=== PATIENT | male | born 1985 | race African-American/Black ===

== ENCOUNTER 2017-03-27 05:55 | Emergency (ER) | payer OTHER ==
[~2017-03-27] VITALS: Ht 177.8 cm; Wt 95.5 kg
[2017-03-27] MEDS ORDERED: INSU200I4 SQ (05:59)
[2017-03-27] MEDS ORDERED: METF500T4 PO (05:59)
[2017-03-27 06:09] LABS: GLUCOSE,POINT OF CARE 462 MG/DL (70-110)
[2017-03-27] MEDS ORDERED: SODIUM CHLORIDE 0.9% 1,000 ML IV ONE ×3 (06:45→09:30)
[2017-03-27] MEDS ORDERED: ONDANSETRON HCL 4 MG/2 ML VIAL IVP ONE (06:45)
[2017-03-27 06:59] LABS: BASOPHILS % (AUTO) 0.2 % (0.0-2.0); EOSINOPHILS % (AUTO) 2.8 % (1.0-6.0); HEMATOCRIT 48.2 % (41-53); HEMOGLOBIN 16.1 g/dL (13.5-17.5); LYMPHOCYTES % (AUTO) 24.3 % (22.0-44.0); MEAN CORPUSCULAR HEMOGLOBIN 26.7 pg (26.0-34.0); MEAN CORPUSCULAR HGB CONC 33.3 G/dL (31.0-37.0); MEAN CORPUSCULAR VOLUME 80 fL (80-100); MONOCYTES # (AUTO) 0.4 K/uL (0.1-1.0); MONOCYTES % (AUTO) 5.3 % (2.0-9.0); NEUTROPHILS # (AUTO) 5.6 K/uL (1.8-7.7); NEUTROPHILS % (AUTO) 67.4 % (40.0-70.0); PLATELET COUNT (AUTO) 385 K/uL (150-450); RED BLOOD CELL COUNT(AUTO) 6.01 MIL/uL (4.50-5.90); RED CELL DISTRIBUTION WIDTH 14.4 % (11.5-14.5); WHITE BLOOD COUNT (AUTO) 8.3 K/uL (4.5-11.0)
[2017-03-27 07:08] LABS: ALANINE AMINOTRANSFERASE 78 U/L (12-78); ALBUMIN 4.5 g/dL (3.4-5.0); ANION GAP 18 mmol/L (8-16); ASPARTATE AMINOTRANSFERASE 37 U/L (15-37); BILIRUBIN,TOTAL 0.8 mg/dL (0.1-1.0); CALCIUM, TOTAL 9.4 mg/dL (8.8-10.5); CARBON DIOXIDE 23 mmol/L (22-29); CHLORIDE 92 mmol/L (98-107); GLOMERULAR FILTR. RATE CALC > 60 mL/min (>60); SODIUM SERUM 133 mmol/L (136-145); TOTAL PROTEIN, SERUM 9.2 g/dL (6.4-8.2); UREA NITROGEN, BLOOD 14 mg/dL (7-18)
[2017-03-27 07:27] LABS: GLUCOSE COMMENT 1 Doctor Notified; GLUCOSE COMMENT 2 Repeated; GLUCOSE,POINT OF CARE 426 MG/DL (70-110)
[2017-03-27] MEDS ORDERED: INSULIN REGULAR, HUMAN 100 UNITS/ML IVP ONE (07:30)
[2017-03-27 08:42] LABS: GLUCOSE,POINT OF CARE 258 MG/DL (70-110)
[2017-03-27 09:56] LABS: ANION GAP 14 mmol/L (8-16); CALCIUM, TOTAL 8.4 mg/dL (8.8-10.5); CARBON DIOXIDE 24 mmol/L (22-29); CHLORIDE 100 mmol/L (98-107); CREATININE 1.05 mg/dL (0.60-1.30); GLOMERULAR FILTR. RATE CALC > 60 mL/min (>60); SODIUM SERUM 138 mmol/L (136-145); UREA NITROGEN, BLOOD 12 mg/dL (7-18)
[2017-03-27 10:02] LABS: GLUCOSE,POINT OF CARE 223 MG/DL (70-110)
[2017-03-27 11:42] VITALS: BP 119/59
[2017-03-27 11:52] LABS: GLUCOSE,POINT OF CARE 262 MG/DL (70-110)
== END 2017-03-27 11:50 | disposition home or self-care (01) ==
LOC: EMS 05:56
DX: E11.65 Type 2 diabetes mellitus with hyperglycemia (principal)
CPT/HCPCS: 36415; 80048; 80053; 82948; 82962; 85025; 96361; 96374; 99285; J1815; J7030

== ENCOUNTER 2018-07-04 09:02 | Inpatient (IN) | payer MEDICAID, OTHER ==
[~2018-07-04] VITALS: Ht 177.8 cm; Wt 80.8 kg
[~2018-07-04 09:02] MED LIST: INSU200I4 SQ; METF-960 PO
[2018-07-04 09:24] LABS: GLUCOSE,POINT OF CARE 387 MG/DL (70-110)
[2018-07-04 09:56] LABS: BASOPHILS % (AUTO) 0.9 % (0.0-2.0); EOSINOPHILS % (AUTO) 0.3 % (1.0-6.0); HEMATOCRIT 53.5 % (41-53); HEMOGLOBIN 17.7 g/dL (13.5-17.5); LYMPHOCYTES # (AUTO) 1.7 K/uL (1.0-4.8); LYMPHOCYTES % (AUTO) 18.5 % (22.0-44.0); MEAN CORPUSCULAR HEMOGLOBIN 26.7 pg (26.0-34.0); MEAN CORPUSCULAR HGB CONC 33.1 G/dL (31.0-37.0); MEAN CORPUSCULAR VOLUME 81 fL (80-100); MONOCYTES # (AUTO) 0.6 K/uL (0.1-1.0); MONOCYTES % (AUTO) 6.6 % (2.0-9.0); NEUTROPHILS # (AUTO) 6.9 K/uL (1.8-7.7); NEUTROPHILS % (AUTO) 73.7 % (40.0-70.0); PLATELET COUNT (AUTO) 419 K/uL (150-450); RED BLOOD CELL COUNT(AUTO) 6.65 MIL/uL (4.50-5.90); RED CELL DISTRIBUTION WIDTH 13.8 % (11.5-14.5)
[2018-07-04 10:06] LABS: ANION GAP 27 mmol/L (8-16); CALCIUM, TOTAL 9.2 mg/dL (8.8-10.5); CARBON DIOXIDE 10 mmol/L (22-29); CHLORIDE 97 mmol/L (98-107); GLOMERULAR FILTR. RATE CALC > 60 mL/min (>60); GLUCOSE,RANDOM 357 mg/dL (70-110); POTASSIUM 4.3 mmol/L (3.5-5.1); SODIUM SERUM 134 mmol/L (136-145); UREA NITROGEN, BLOOD 10 mg/dL (7-18)
[2018-07-04 10:11] LABS: ALANINE AMINOTRANSFERASE 80 U/L (12-78); ALBUMIN 4.7 g/dL (3.4-5.0); ALKALINE PHOSPHATASE 114 U/L (46-116); ASPARTATE AMINOTRANSFERASE 37 U/L (15-37); BILIRUBIN,TOTAL 0.5 mg/dL (0.1-1.0); LIPASE 57 U/L (73-393); TOTAL PROTEIN, SERUM 9.6 g/dL (6.4-8.2)
[2018-07-04 10:21] LABS: ACETONE,BLOOD 1:32 (NEGATIVE)
[2018-07-04] MEDS ORDERED: SODIUM CHLORIDE 0.9% 1,000 ML IV ONE ×3 (10:30→12:30)
[2018-07-04] MEDS ORDERED: INSU100I26 SQ (10:32)
[2018-07-04] MEDS ORDERED: LORazepam 1 MG TABLET PO ONE (11:30)
[2018-07-04] MEDS ORDERED: DEXTROSE 5%-WATER 1,000 ML IV SCH (11:53)
[2018-07-04] MEDS ORDERED: INSULIN REGULAR, HUMAN 100 UNITS in SODIUM CHLORIDE 0.9% 99 ML IV PRN ×4 (11:53→12:24)
[2018-07-04] MEDS ORDERED: DEXTROSE 50%-WATER 25 GM/50 ML SYRINGE IVP PRN ×2 (12:00→12:30)
[2018-07-04 12:02] LABS: APPEARANCE,URINE CLEAR (CLEAR); BILIRUBIN,URINE NEGATIVE (NEGATIVE); GLUCOSE, URINE (UA) >=1000 mg/dL (NEGATIVE); KETONES,URINE >=80 mg/dL (NEGATIVE); LEUKOCYTE ESTERASE ,URINE NEGATIVE (NEGATIVE); NITRATE,URINE NEGATIVE (NEGATIVE); OCCULT BLOOD,URINE TRACE (NEGATIVE); PROTEIN,URINE SEE CONFIRM (NEGATIVE); UROBILINOGEN,URINE 0.2 mg/dL (<=1.0)
[2018-07-04 12:09] LABS: GLUCOSE,POINT OF CARE 313 MG/DL (70-110)
[2018-07-04 12:10] LABS: SULFOSALICYLIC ACID,URINE 3+ (Negative)
[2018-07-04 12:14] LABS: BACTERIA,URINE None Seen /HPF (None Seen); RBC,URINE 0-2 /HPF (0-2); SQUAMOUS EPITHELIAL CELL,UR Few /LPF (None Seen); WBC,URINE None Seen /HPF (0-5)
[2018-07-04 12:24] LABS: ABG A-A DIFF O2 17.4 mmHg (10-20.0); ABG CARBOXYHEMOGLOBIN 1.5 % (0.0-1.5); ABG HCO3 10.5 mmol/L (22.0-26.0); ABG METHEMOGLOBIN 0.3 % (0.0-1.5); ABG OXYGEN SATURATION 97.6 % (95.0-98.0); ABG OXYHEMOGLOBIN 95.8 % (94.0-100.0); ABG TOTAL HEMOGLOBIN 16.3 G/dL (12.0-18.0); PO2, ARTERIAL BG 105.4 mmHg (92.0-100.0); SOURCE, BLOOD GAS ARTERIAL; TEMPERATURE, FAHRENHEIT, BG 98.6 FAHREN (96.0-98.6)
[2018-07-04] MEDS ORDERED: POTASSIUM CHL 20 MEQ/0.45% NS 1,000 ML IV PRN (12:24)
[2018-07-04] MEDS ORDERED: SODIUM CHLORIDE 0.45% 1,000 ML IV PRN (12:24)
[2018-07-04] MEDS ORDERED: POTASSIUM CHLORIDE 40 MEQ in SODIUM CHLORIDE 0.45% 1,000 ML IV PRN (12:24)
[2018-07-04] MEDS ORDERED: SODIUM CHLORIDE 0.9% 1,000 ML IV SCH (12:24)
[2018-07-04 12:25] LABS: ABG PCO2 23 mmHg (35-45); ABG PH 7.127 (7.350-7.450); SITE, BLOOD GAS RT RADIAL
[2018-07-04] MEDS ORDERED: ACETAMINOPHEN 325 MG TABLET PO PRN (12:30)
[2018-07-04] MEDS ORDERED: INSULIN REGULAR, HUMAN 100 UNITS/ML IVP ONE (12:30)
[2018-07-04] MEDS ORDERED: MORPHINE SULFATE 4 MG/ML SYRINGE IVP PRN (12:30)
[2018-07-04] MEDS ORDERED: HYDROCODONE/ACETAMINOPHEN 5-325 MG TABLET PO PRN (12:30)
[2018-07-04] MEDS ORDERED: BISACODYL 10 MG RECTAL RECTAL SUPPOSITORY PR PRN (12:30)
[2018-07-04] MEDS ORDERED: ZOLPIDEM TARTRATE 5 MG TABLET PO PRN (12:30)
[2018-07-04] MEDS ORDERED: ONDANSETRON HCL 4 MG/2 ML VIAL IVP PRN (12:30)
[2018-07-04] MEDS ORDERED: INSULIN REGULAR, HUMAN 100 UNITS/ML IVP PRN (12:30)
[2018-07-04] MEDS ORDERED: MAGNESIUM HYDROXIDE SUSPENSION 30 ML UDCUP PO PRN (12:30)
[2018-07-04 13:28] LABS: BASOPHILS % (AUTO) 0.9 % (0.0-2.0); EOSINOPHILS % (AUTO) 0.2 % (1.0-6.0); HEMOGLOBIN 15.9 g/dL (13.5-17.5); LYMPHOCYTES # (AUTO) 0.8 K/uL (1.0-4.8); LYMPHOCYTES % (AUTO) 4.4 % (22.0-44.0); MEAN CORPUSCULAR HEMOGLOBIN 26.2 pg (26.0-34.0); MEAN CORPUSCULAR HGB CONC 32.4 G/dL (31.0-37.0); MEAN CORPUSCULAR VOLUME 81 fL (80-100); MONOCYTES # (AUTO) 0.6 K/uL (0.1-1.0); MONOCYTES % (AUTO) 3.6 % (2.0-9.0); NEUTROPHILS # (AUTO) 15.9 K/uL (1.8-7.7); PLATELET COUNT (AUTO) 374 K/uL (150-450); RED BLOOD CELL COUNT(AUTO) 6.05 MIL/uL (4.50-5.90); RED CELL DISTRIBUTION WIDTH 14.4 % (11.5-14.5)
[2018-07-04 13:29] LABS: NEUTROPHILS % (AUTO) 90.9 % (40.0-70.0)
[2018-07-04 13:44] LABS: GLUCOSE,POINT OF CARE 240 MG/DL (70-110)
[2018-07-04 13:44] LABS: ANION GAP 26 mmol/L (8-16); CALCIUM, TOTAL 8.2 mg/dL (8.8-10.5); CARBON DIOXIDE 10 mmol/L (22-29); CHLORIDE 102 mmol/L (98-107); CREATININE 1.34 mg/dL (0.60-1.30); GLOMERULAR FILTR. RATE CALC > 60 mL/min (>60); GLUCOSE,RANDOM 249 mg/dL (70-110); SODIUM SERUM 138 mmol/L (136-145); UREA NITROGEN, BLOOD 9 mg/dL (7-18)
[2018-07-04 15:19] LABS: GLUCOSE,POINT OF CARE 206 MG/DL (70-110)
[2018-07-04 15:54] LABS: GLUCOSE,POINT OF CARE 171 MG/DL (70-110)
[2018-07-04 16:44] LABS: GLUCOSE,POINT OF CARE 164 MG/DL (70-110)
[2018-07-04] MEDS: DEXTROSE 5%-0.45% SODIUM CHL 1,000 ML IV PRN (17:05)
[2018-07-04] MEDS: HEPARIN SODIUM,PORCINE 5,000 UNITS/ML VIAL SQ SCH (17:45)
[2018-07-04 18:04] LABS: GLUCOSE,POINT OF CARE 143 MG/DL (70-110)
[2018-07-04 18:26] LABS: BASOPHILS % (AUTO) 0.6 % (0.0-2.0); EOSINOPHILS % (AUTO) 0 % (1.0-6.0); HEMATOCRIT 46.8 % (41-53); HEMOGLOBIN 15.2 g/dL (13.5-17.5); LYMPHOCYTES # (AUTO) 2.9 K/uL (1.0-4.8); LYMPHOCYTES % (AUTO) 16.2 % (22.0-44.0); MEAN CORPUSCULAR HEMOGLOBIN 26.3 pg (26.0-34.0); MEAN CORPUSCULAR HGB CONC 32.4 G/dL (31.0-37.0); MEAN CORPUSCULAR VOLUME 81 fL (80-100); MONOCYTES # (AUTO) 1.9 K/uL (0.1-1.0); MONOCYTES % (AUTO) 10.6 % (2.0-9.0); NEUTROPHILS # (AUTO) 12.8 K/uL (1.8-7.7); NEUTROPHILS % (AUTO) 72.6 % (40.0-70.0); PLATELET COUNT (AUTO) 313 K/uL (150-450); RED BLOOD CELL COUNT(AUTO) 5.76 MIL/uL (4.50-5.90); RED CELL DISTRIBUTION WIDTH 14.3 % (11.5-14.5)
[2018-07-04 18:37] LABS: ANION GAP 20 mmol/L (8-16); CALCIUM, TOTAL 7.7 mg/dL (8.8-10.5); CARBON DIOXIDE 13 mmol/L (22-29); CHLORIDE 104 mmol/L (98-107); CREATININE 1.18 mg/dL (0.60-1.30); GLOMERULAR FILTR. RATE CALC > 60 mL/min (>60); GLUCOSE,RANDOM 142 mg/dL (70-110); POTASSIUM 4.5 mmol/L (3.5-5.1); SODIUM SERUM 137 mmol/L (136-145); UREA NITROGEN, BLOOD 7 mg/dL (7-18)
[2018-07-04 18:43] LABS: ALANINE AMINOTRANSFERASE 57 U/L (12-78); ALBUMIN 3.6 g/dL (3.4-5.0); ALKALINE PHOSPHATASE 80 U/L (46-116); ASPARTATE AMINOTRANSFERASE 28 U/L (15-37); BILIRUBIN,TOTAL 0.4 mg/dL (0.1-1.0); TOTAL PROTEIN, SERUM 7.6 g/dL (6.4-8.2)
[2018-07-04 19:04] LABS: GLUCOSE,POINT OF CARE 151 MG/DL (70-110)
[2018-07-04 20:14] LABS: GLUCOSE,POINT OF CARE 137 MG/DL (70-110)
[2018-07-04] MEDS: DOCUSATE SODIUM 100 MG CAPSULE PO SCH (21:00)
[2018-07-04 21:15] LABS: GLUCOSE,POINT OF CARE 121 MG/DL (70-110)
[2018-07-04 22:24] LABS: GLUCOSE,POINT OF CARE 127 MG/DL (70-110)
[2018-07-04 22:24] LABS: ANION GAP 16 mmol/L (8-16); CALCIUM, TOTAL 8.1 mg/dL (8.8-10.5); CARBON DIOXIDE 17 mmol/L (22-29); CHLORIDE 104 mmol/L (98-107); CREATININE 1.12 mg/dL (0.60-1.30); GLOMERULAR FILTR. RATE CALC > 60 mL/min (>60); GLUCOSE,RANDOM 125 mg/dL (70-110); POTASSIUM 3.7 mmol/L (3.5-5.1); SODIUM SERUM 137 mmol/L (136-145); UREA NITROGEN, BLOOD 5 mg/dL (7-18)
[2018-07-05] VITALS: BP 114/59
[2018-07-05] MEDS: HEPARIN SODIUM,PORCINE 5,000 UNITS/ML VIAL SQ SCH ×4 (00:02→23:39)
[2018-07-05 00:09] LABS: GLUCOSE,POINT OF CARE 121 MG/DL (70-110)
[2018-07-05] MEDS ORDERED: PNEUMOCOCCAL VACCINE POLYVALENT 0.5 ML VIAL [PPSV23] IM ONE (00:30)
[2018-07-05 02:31] LABS: ANION GAP 13 mmol/L (8-16); CARBON DIOXIDE 19 mmol/L (22-29); CHLORIDE 106 mmol/L (98-107); CREATININE 1.06 mg/dL (0.60-1.30); GLOMERULAR FILTR. RATE CALC > 60 mL/min (>60); GLUCOSE,RANDOM 106 mg/dL (70-110); POTASSIUM 3.6 mmol/L (3.5-5.1); SODIUM SERUM 138 mmol/L (136-145); UREA NITROGEN, BLOOD 5 mg/dL (7-18)
[2018-07-05 04:00] VITALS: BP 112/58
[2018-07-05 04:29] LABS: GLUCOSE,POINT OF CARE 112 MG/DL (70-110)
[2018-07-05 04:29] LABS: GLUCOSE,POINT OF CARE 121 MG/DL (70-110)
[2018-07-05 04:29] LABS: GLUCOSE,POINT OF CARE 114 MG/DL (70-110)
[2018-07-05 04:29] LABS: GLUCOSE,POINT OF CARE 100 MG/DL (70-110)
[2018-07-05 04:29] LABS: GLUCOSE,POINT OF CARE 107 MG/DL (70-110)
[2018-07-05 05:29] LABS: GLUCOSE,POINT OF CARE 131 MG/DL (70-110)
[2018-07-05] MEDS: DEXTROSE 5%-0.45% SODIUM CHL 1,000 ML IV PRN (05:45)
[2018-07-05 06:14] LABS: GLUCOSE,POINT OF CARE 133 MG/DL (70-110)
[2018-07-05 07:58] LABS: ALANINE AMINOTRANSFERASE 47 U/L (12-78); ALBUMIN 3.1 g/dL (3.4-5.0); ALKALINE PHOSPHATASE 67 U/L (46-116); ANION GAP 12 mmol/L (8-16); ASPARTATE AMINOTRANSFERASE 26 U/L (15-37); BILIRUBIN,TOTAL 0.6 mg/dL (0.1-1.0); CARBON DIOXIDE 20 mmol/L (22-29); CHLORIDE 103 mmol/L (98-107); CREATININE 1.07 mg/dL (0.60-1.30); GLOMERULAR FILTR. RATE CALC > 60 mL/min (>60); GLUCOSE,RANDOM 150 mg/dL (70-110); PHOSPHORUS 1.5 mg/dL (2.5-4.9); POTASSIUM 3.8 mmol/L (3.5-5.1); SODIUM SERUM 135 mmol/L (136-145); TOTAL PROTEIN, SERUM 6.4 g/dL (6.4-8.2); UREA NITROGEN, BLOOD 5 mg/dL (7-18)
[2018-07-05 08:00] VITALS: BP 117/66
[2018-07-05] MEDS ORDERED: DEXTROSE 50%-WATER 25 GM/50 ML SYRINGE IVP PRN (09:15)
[2018-07-05] MEDS: PANTOPRAZOLE SODIUM 40 MG DR TABLET PO SCH (09:24)
[2018-07-05] MEDS: DOCUSATE SODIUM 100 MG CAPSULE PO SCH ×2 (09:24→20:18)
[2018-07-05] MEDS: SODIUM CHLORIDE 0.9% 1,000 ML IV SCH ×2 (09:25→23:40)
[2018-07-05] MEDS: INSULIN GLARGINE,HUM.REC.ANLOG 100 UNITS/ML SQ SCH ×2 (09:26→20:19)
[2018-07-05 10:53] VITALS: BP 124/74
[2018-07-05] MEDS: INSULIN LISPRO 100 UNITS/ML SQ PRN ×3 (11:21→20:19)
[2018-07-05 15:18] VITALS: BP 130/79
[2018-07-05 15:29] LABS: GLUCOSE,POINT OF CARE 143 MG/DL (70-110)
[2018-07-05 15:29] LABS: GLUCOSE,POINT OF CARE 188 MG/DL (70-110)
[2018-07-05 17:54] LABS: GLUCOMETER DEV NAME(LOC) 6N.1; GLUCOSE,POINT OF CARE 276 MG/DL (70-110)
[2018-07-05 20:53] VITALS: BP 135/76
[2018-07-05 20:53] LABS: GLUCOMETER DEV NAME(LOC) 6N.1; GLUCOSE,POINT OF CARE 292 MG/DL (70-110)
[2018-07-05] MEDS ORDERED: POTASSIUM PHOS/SODIUM PHOS MIXTURE 1 POWDER PACKET PO ONE (22:45)
[2018-07-06] VITALS (7 sets, daily range): BP systolic 114–140; BP diastolic 54–74
[2018-07-06] MEDS: INSULIN LISPRO 100 UNITS/ML SQ PRN ×4 (06:04→20:10)
[2018-07-06 06:39] LABS: GLUCOMETER DEV NAME(LOC) 6N.1; GLUCOSE,POINT OF CARE 197 MG/DL (70-110)
[2018-07-06] MEDS: PANTOPRAZOLE SODIUM 40 MG DR TABLET PO SCH (08:43)
[2018-07-06] MEDS: DOCUSATE SODIUM 100 MG CAPSULE PO SCH ×2 (08:43→20:08)
[2018-07-06] MEDS: HEPARIN SODIUM,PORCINE 5,000 UNITS/ML VIAL SQ SCH ×3 (08:43→23:31)
[2018-07-06] MEDS: INSULIN GLARGINE,HUM.REC.ANLOG 100 UNITS/ML SQ SCH ×4 (08:44→20:14)
[2018-07-06 12:35] LABS: GLUCOMETER DEV NAME(LOC) 6N.2; GLUCOSE,POINT OF CARE 322 MG/DL (70-110)
[2018-07-06 17:30] LABS: GLUCOMETER DEV NAME(LOC) 6N.1; GLUCOSE,POINT OF CARE 308 MG/DL (70-110)
[2018-07-06 20:55] LABS: GLUCOMETER DEV NAME(LOC) 6N.1; GLUCOSE,POINT OF CARE 286 MG/DL (70-110)
[2018-07-06 21:55] LABS: GLUCOMETER DEV NAME(LOC) 5N.2; GLUCOSE,POINT OF CARE 244 MG/DL (70-110)
[2018-07-07 05:10] VITALS: BP 116/69
[2018-07-07] MEDS: INSULIN LISPRO 100 UNITS/ML SQ PRN ×2 (05:36→11:20)
[2018-07-07 06:04] LABS: BASOPHILS % (AUTO) 1.2 % (0.0-2.0); EOSINOPHILS % (AUTO) 2.5 % (1.0-6.0); HEMATOCRIT 42.1 % (41-53); HEMOGLOBIN 14.1 g/dL (13.5-17.5); LYMPHOCYTES # (AUTO) 1.9 K/uL (1.0-4.8); LYMPHOCYTES % (AUTO) 47.9 % (22.0-44.0); MEAN CORPUSCULAR HEMOGLOBIN 26.6 pg (26.0-34.0); MEAN CORPUSCULAR HGB CONC 33.5 G/dL (31.0-37.0); MEAN CORPUSCULAR VOLUME 80 fL (80-100); MONOCYTES # (AUTO) 0.6 K/uL (0.1-1.0); MONOCYTES % (AUTO) 14.8 % (2.0-9.0); NEUTROPHILS # (AUTO) 1.4 K/uL (1.8-7.7); NEUTROPHILS % (AUTO) 33.6 % (40.0-70.0); PLATELET COUNT (AUTO) 289 K/uL (150-450); RED BLOOD CELL COUNT(AUTO) 5.28 MIL/uL (4.50-5.90)
[2018-07-07 06:35] LABS: GLUCOMETER DEV NAME(LOC) 6N.1; GLUCOSE,POINT OF CARE 224 MG/DL (70-110)
[2018-07-07 07:57] VITALS: BP 111/74
[2018-07-07] MEDS: HEPARIN SODIUM,PORCINE 5,000 UNITS/ML VIAL SQ SCH (08:00)
[2018-07-07] MEDS: DOCUSATE SODIUM 100 MG CAPSULE PO SCH (08:06)
[2018-07-07] MEDS: INSULIN GLARGINE,HUM.REC.ANLOG 100 UNITS/ML SQ SCH ×2 (08:06→08:46)
[2018-07-07] MEDS: PANTOPRAZOLE SODIUM 40 MG DR TABLET PO SCH (08:06)
[2018-07-07 11:34] LABS: GLUCOMETER DEV NAME(LOC) 6N.2; GLUCOSE,POINT OF CARE 321 MG/DL (70-110)
== END 2018-07-07 13:05 | disposition home or self-care (01) | DRG 420 ==
LOC: EMS 09:03 → ICU 16:17 → 5N 07-05 10:49 → 6N 07-05 15:47
PROVIDERS: ADMIT Internal Medicine; ATTEND Internal Medicine
DX: E11.10 Type 2 diabetes mellitus with ketoacidosis without coma (principal); N17.9 Acute kidney failure, unspecified; R65.10 Systemic inflammatory response syndrome (SIRS) of non-infectious origin without acute organ dysfunction; Z91.14 Patient's other noncompliance with medication regimen; D72.829 Elevated white blood cell count, unspecified; Z79.4 Long term (current) use of insulin; E11.21 Type 2 diabetes mellitus with diabetic nephropathy
CPT/HCPCS: 36600; 82805; 83735; 84100; 87081; 90686; 90732; 93005; 99291; G0378; J1644; J1815; J3480; J7030; J7050

== ENCOUNTER 2022-09-25 11:17 | Emergency (ER) | payer MEDICAID, OTHER ==
[~2022-09-25] VITALS: Ht 177.8 cm; Wt 97.7 kg
[2022-09-25 11:33] LABS: COVID AG,FIA SOURCE NASAL SWAB
[2022-09-25 12:24] LABS: RAPID GROUP A STREP NEGATIVE (NEGATIVE)
[2022-09-25 12:38] LABS: INFLUENZA TYPE A NEGATIVE FOR TYPE A (NEGATIVE); INFLUENZA TYPE B NEGATIVE FOR TYPE B (NEGATIVE)
[2022-09-25 13:08] VITALS: BP 154/77
[2022-09-25] MEDS ORDERED: ERYT3.5O8 OD (13:09)
== END 2022-09-25 13:22 | disposition home or self-care (01) ==
LOC: EMS 11:25
DX: H10.9 Unspecified conjunctivitis (principal); J02.9 Acute pharyngitis, unspecified; E10.9 Type 1 diabetes mellitus without complications; Z20.822 Contact with and (suspected) exposure to COVID-19
CPT/HCPCS: 82962; 87430; 87804; 99283

== ENCOUNTER 2024-01-03 16:09 | Emergency (ER) | payer OTHER ==
[~2024-01-03] VITALS: Ht 177.8 cm; Wt 97.7 kg
[~2024-01-03 16:09] MED LIST changes: +ERYT3.5O8 OD; -INSU200I4 SQ; -METF-960 PO
[2024-01-03 16:19] VITALS: BP 125/74; PULSE 85; RESP 14; TEMP 98.5
[2024-01-03 16:31] LABS: GLUCOMETER DEV NAME(LOC) ER.7; GLUCOSE,POINT OF CARE 125 MG/DL (70-110)
[2024-01-03 17:17] LABS: BASOPHILS % (AUTO) 0.1 % (0.0-2.0); EOSINOPHILS % (AUTO) 0.3 % (1.0-6.0); HEMATOCRIT 51.1 % (41-53); HEMOGLOBIN 16.6 g/dL (13.5-17.5); LYMPHOCYTES # (AUTO) 1.2 K/uL (1.0-4.8); LYMPHOCYTES % (AUTO) 9.8 % (22.0-44.0); MEAN CORPUSCULAR HGB CONC 32.4 G/dL (31.0-37.0); MEAN CORPUSCULAR VOLUME 83 fL (80-100); MONOCYTES # (AUTO) 0.4 K/uL (0.1-1.0); MONOCYTES % (AUTO) 3.5 % (2.0-9.0); NEUTROPHILS # (AUTO) 10.2 K/uL (1.8-7.7); NEUTROPHILS % (AUTO) 86.3 % (40.0-70.0); PLATELET COUNT (AUTO) 358 K/uL (150-450); RED BLOOD CELL COUNT(AUTO) 6.15 MIL/uL (4.50-5.90); RED CELL DISTRIBUTION WIDTH 15.5 % (11.5-14.5); WHITE BLOOD COUNT (AUTO) 11.8 K/uL (4.5-11.0)
[2024-01-03 17:27] LABS: ANION GAP 7 mmol/L (8-16); CALCIUM, TOTAL 9.8 mg/dL (8.8-10.5); CARBON DIOXIDE 31 mmol/L (22-29); CHLORIDE 102 mmol/L (98-107); CREATININE 1.11 mg/dL (0.60-1.30); GLOMERULAR FILTR. RATE CALC > 60 mL/min (>60); GLUCOSE,RANDOM 144 mg/dL (70-110); SODIUM SERUM 140 mmol/L (136-145); UREA NITROGEN, BLOOD 11 mg/dL (7-18)
[2024-01-03 17:31] LABS: ALANINE AMINOTRANSFERASE 24 U/L (12-78); ALBUMIN 4.3 g/dL (3.4-5.0); ALKALINE PHOSPHATASE 95 U/L (46-116); ASPARTATE AMINOTRANSFERASE 22 U/L (15-37); BILIRUBIN,TOTAL 0.6 mg/dL (0.1-1.0); LIPASE 15 U/L (16-77); TOTAL PROTEIN, SERUM 8.7 g/dL (6.4-8.2)
[2024-01-03 17:33] LABS: ALCOHOL, BLOOD (SERUM) < 3 mg/dL (0-10)
[2024-01-03] MEDS: ONDANSETRON HCL 4 MG/2 ML VIAL IVP ONE (18:32)
[2024-01-03] MEDS: SODIUM CHLORIDE 0.9% 1,000 ML IV ONE (18:32)
[2024-01-03] MEDS: FAMOTIDINE 20 MG/2 ML VIAL IVP ONE (18:33)
[2024-01-03] MEDS: MORPHINE SULFATE 2 MG/ML SYRINGE IVP ONE (18:33)
[2024-01-03] MEDS: ACETAMINOPHEN 500 MG TABLET PO ONE (18:33)
[2024-01-03 19:03] LABS: APPEARANCE,URINE TURBID (CLEAR); BILIRUBIN,URINE NEGATIVE (NEGATIVE); COLOR,URINE YELLOW (YELLOW); GLUCOSE, URINE (UA) NEGATIVE (NEGATIVE); LEUKOCYTE ESTERASE ,URINE NEGATIVE (NEGATIVE); NITRATE,URINE NEGATIVE (NEGATIVE); OCCULT BLOOD,URINE NEGATIVE (NEGATIVE); PH,URINE 5.5 (5.0-8.0); PROTEIN,URINE 30-70 mg/dL (NEGATIVE); SPECIFIC GRAVITIY, URINE 1.034 (1.003-1.030); UROBILINOGEN,URINE <=1.0 mg/dL (<=1.0)
[2024-01-03 19:17] LABS: ALCOHOL, URINE DRUG SCREEN NEGATIVE (NEGATIVE); AMPHET/METH SCREEN,URINE NEGATIVE (NEGATIVE); BARBITURATE SCREEN, URINE NEGATIVE (NEGATIVE); BENZODIAZEPINES SCREEN,URINE NEGATIVE (NEGATIVE); CANNABINOID SCREEN,URINE NEGATIVE (NEGATIVE); COCAINE SCREEN,URINE NEGATIVE (NEGATIVE); METHADONE SCREEN, URINE NEGATIVE (NEGATIVE); OPIATE SCREEN,URINE NEGATIVE (NEGATIVE); PHENCYCLIDINE SCREEN,URINE NEGATIVE (NEGATIVE)
[2024-01-03 19:25] LABS: PH,URINE DRUG SCREEN 5.5 (5.0-8.0)
[2024-01-03] MEDS ORDERED: SODIUM CHLORIDE 0.9% 100 ML ONE (19:45)
[2024-01-03] MEDS ORDERED: IOHEXOL 350 MG/ML 100 ML VIAL ONE (19:45)
[2024-01-03] MEDS ORDERED: AMOX-457 PO (21:09)
[2024-01-03] MEDS ORDERED: ONDA-104 PO (21:09)
[2024-01-03] MEDS: AMOX TR/POT CLAV 875 MG/125 MG TABLET PO ONE (21:18)
== END 2024-01-03 21:27 | disposition home or self-care (01) ==
LOC: EMS 16:11
DX: K52.9 Noninfective gastroenteritis and colitis, unspecified (principal); E11.9 Type 2 diabetes mellitus without complications
CPT/HCPCS: 99285; 74177; 96374; 96375; 96361; 80048; 80076; 81003; 82962; 83690; 85025; 36415; 80307; G0480; Q9967; J3490; J2270; J2405; J7030; J7050